=== PATIENT | female | born 1955 ===

== ENCOUNTER 2018-06-12 05:37 | Inpatient (IN) | payer OTHER ==
[2018-06-12] VITALS (9 sets, daily range): BP systolic 106–124; BP diastolic 55–69
[~2018-06-12] VITALS: Ht 160 cm; Wt 92.5 kg
[~2018-06-12 05:37] MED LIST: ALBUTEROL SULF8.5 GM INH; AMLODIPINE BESY10 MG ORAL; ASPIR 8181 MG ORAL; GLIPIZIDE5 MG ORAL; HYDROCHLOROTHIA50 MG ORAL; K-TAB10 MEQ PO; LOSARTAN POTASS50 MG ORAL; OMEPRAZOLE20 M3 ORAL; VITAMIN D250000 UNI1 ORAL
[2018-06-12] MEDS ORDERED: Thrombin 5000 units TOPIC ONE (06:25)
[2018-06-12] MEDS ORDERED: Bacitracin 50000 Units Vial ONE (06:25)
[2018-06-12] MEDS ORDERED: Gelfoam Size TOPIC ONE (06:25)
[2018-06-12] MEDS ORDERED: Lidocaine 1% Plain 30 ml INJ ONE (06:25)
[2018-06-12] MEDS ORDERED: Zemuron 50mg/5ml Inj IV ONE (06:33)
[2018-06-12] MEDS ORDERED: Sodium Chloride 10ml vial INJ ONE (06:45)
[2018-06-12] MEDS ORDERED: HYDROcodone/Acetamin 10/325 tab ORAL PRN (06:45)
[2018-06-12] MEDS ORDERED: Chloraseptic Spray 20mL Bottle ORAL PRN (06:45)
[2018-06-12] MEDS ORDERED: HYDROmorphone 1mg/ml Carpuject SUBQ PRN (06:45)
[2018-06-12] MEDS ORDERED: Lidocaine 1% MPF 10mg/ml 5ml ONE (06:45)
[2018-06-12] MEDS ORDERED: LR 1000ml 1,000 ML IVLG SCH (06:46)
--- NOTE | 2018-06-12 06:56 | Anethesia Preoperative Eval ---
Anesthesia Pre-op PMH/ROS General Date of Evaluation: Jun 12, 2018 Time of Evaluation: 07:01 Anesthesiologist: Chloé ASA Score: ASA 3 Mallampati Score Class I : Soft palate, uvula, fauces, pillars visible Class II: Soft palate, uvula, fauces visible Class III: Soft palate, base of uvula visible Class IV: Only hard plate visible Mallampati Classification: Class II Surgeon: El Diagnosis: Back Pain Surgical Procedure: L5-S1 Microdiscectomy Anesthesia History: none Family History: no anesthesia problems Allergies: Coded Allergies: No Known Allergies (Unverified , 06/11/18) Medications: see eMAR Past Medical History Pulmonary: Reports: asthma Endocrine: Reports: DM Other: obesity - BMI 37 Anesthesia Pre-op Phys. Exam Physician Exam Last Vital Signs Date Time Temp Pulse Resp B/P (MAP) Pulse Ox O2 Delivery O2 Flow Rate FiO2 06/12/18 06:11 97.4 70 20 124/69 (87) 98 97.4 06/12/18 06:07 Room Air Constitutional: NAD Neurologic: CN 2-12 intact Cardiovascular: RRR Respiratory: CTA Gastrointestinal: S/NT/ND Airway Exam Mallampati Score: Class II MO: full ROM: limited Teeth: missing, intact Anesthesia Pre-op A/P Risk Assessment & Plan Assessment: ASA 3 Plan: GA, BIS, GlideScope Status Change Before Surgery: No Pre-Antibiotics Dru Grams Ancef IV Given Within 1 Hr of Incision: Yes Time Given: 07:21 Laureano Luevano MD Jun 12, 2018 06:56
[2018-06-12] MEDS ORDERED: Midazolam 2mg/2ml Inj IVP PRN (07:00)
[2018-06-12] MEDS ORDERED: Norco 5mg/325mg tab ORAL PRN (07:00)
[2018-06-12] MEDS ORDERED: Atropine Inj 1mg/10ml Syr IV PRN (07:00)
[2018-06-12] MEDS ORDERED: Esmolol 100mg/10ml Inj ONE (07:00)
[2018-06-12] MEDS ORDERED: Sterile Water Irrig 1000ml IRRIG ONE (07:00)
[2018-06-12] MEDS ORDERED: NS Irrig 1000ml ONE (07:00)
[2018-06-12] MEDS ORDERED: Propofol 1,000mg/ 100ml btl IV ONE (07:00)
[2018-06-12] MEDS ORDERED: LORazepam Inj 2mg/ml 1ml IV PRN (07:00)
[2018-06-12] MEDS ORDERED: oxyCODONE HCL/Acetaminophen 5/325mg ORAL PRN (07:00)
[2018-06-12] MEDS ORDERED: DiphenhydrAMINE 50mg/ml Inj IVP PRN (07:00)
[2018-06-12] MEDS ORDERED: LR 1000ml ONE ×2 (07:00)
[2018-06-12] MEDS ORDERED: Metoclopramide 10mg/2ml Inj IVP PRN (07:00)
[2018-06-12] MEDS ORDERED: Dexamethasone 20mg/5ml IVP ONE (07:00)
[2018-06-12] MEDS ORDERED: HYDROcodone/Acetamin 7.5/325 tab ORAL PRN (07:00)
[2018-06-12] MEDS ORDERED: Ketorolac 30mg Inj IV PRN ×2 (07:00)
[2018-06-12] MEDS ORDERED: fentaNYL 100 mcg/2 mL IV PRN (07:00)
[2018-06-12] MEDS ORDERED: ceFAZolin sod 1 GM in NS 55 ML IVPB ONE (07:00)
[2018-06-12] MEDS ORDERED: Acetaminophen (Non formulary) 100 ML IV SCH (07:00)
[2018-06-12] MEDS ORDERED: fentaNYL 100 mcg/2 mL IV ONE (07:02)
--- NOTE | 2018-06-12 07:12 | Pre-Procedure Note/Attestation ---
Pre-Procedure Note/Attestation Complete Prior to Procedure Planned Procedure: not applicable Procedure Narrative: L5-S1 microdiscectomy Indications for Procedure Pre-Operative Diagnosis: Trauma, HNP, radiculopathy Attestation I attest that I discussed the nature of the procedure; its benefits; risks and complications; and alternatives (and the risks and benefits of such alternatives ), prior to the procedure, with the patient (or the patient's legal wire rope sales representative). I attest that, if there was a reasonable possibility of needing a blood transfusion, the patient (or the patient's legal wire rope sales representative) was given the [facility] standardized written summary, pursuant to the Rigo Juan David Blood Safety Act ([place] Health and Safety Code # 1645, as amended). I attest that I re-evaluated the patient just prior to the surgery and that there has been no change in the patient's H&P, except as documented below: ZOLTAN MONTAÑO Jun 12, 2018 07:12
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
[2018-06-12] MEDS ORDERED: ePHEDrine 50mg/ml Inj ONE (08:32)
[2018-06-12] MEDS ORDERED: Glycopyrrolate 0.2mg/ml 1ml Vial ONE (09:32)
--- NOTE | 2018-06-12 09:50 | Brief Operative Note ---
Immediate Post Operative Note Operative Note Pre-op Diagnosis: Trauma, HNP, radiculopathy Procedure: L5-S1 microdiscectomy Xray interpretation Dural Repair (needle hole - documented consistent with epidural steroid puncture - not preformed through my office or ordered through my office) Post-op Diagnosis: same as pre-op Findings: other Surgeon: Felicity Barrel Washer Machine: Surinder SHEARER Anesthesiologist: Chloé ZURITA Anesthesia: general Specimen: yes Complications: none Condition: stable Fluids: anesthesia Estimated Blood Loss: minimal Drains: none Implant(s) used?: No ZOLTAN MONTAÑO Jun 12, 2018 09:50
--- NOTE | 2018-06-12 09:54 | Immediate Post-Op Evaluation ---
Immediate Post-Op Evalulation Immediate Post-Op Evalulation Procedure: L5 Microdiscectomy Date of Evaluation: Jun 12, 2018 Time of Evaluation: 10:22 IV Fluids: 1000 LR Blood Products: 0 Estimated Blood Loss: 50 Urinary Output: 0 Blood Pressure Systolic: 117 Blood Pressure Diastolic: 63 Pulse Rate: 86 Respiratory Rate: 16 O2 Sat by Pulse Oximetry: 99 Temperature (Fahrenheit): 98.6 Pain Score (1-10): 3 Nausea: No Vomiting: No Complications 0 Patient Status: awake, reacts, patent, extubated, none Hydration Status: adequate Drug: @ Grams Ancef IV Given Within 1 Hr of Incision: Yes Time Given: 07:21 Laureano Luveano MD Jun 12, 2018 09:54
[2018-06-12] MEDS: Hydromorphone 0.5mg/0.5ml inj IVP PRN ×2 (10:23→10:39)
--- NOTE | 2018-06-12 10:58 | Diagnostic Imaging Report ---
Indication: Lower back pain, right lower extremity greater than left lower extremity, intraoperative imaging Technique: Intraoperative images Comparison: none Findings: Single lateral image demonstrates a surgical tool projected posterior to what is presumably the L5-S1 disc. Impression: Intraoperative imaging, as described
[2018-06-12] MEDS ORDERED: ceFAZolin sod 1 GM in D5W 55 ML IV SCH (14:00)
[2018-06-12] MEDS ORDERED: ceFAZolin 1gm/50ml Premix 50 ML IV SCH (15:30)
[2018-06-12] MEDS ORDERED: NORCO 10-325 T1 EACH ORAL (16:15)
[2018-06-12] MEDS ORDERED: Hyzaar 12.5mg/50mg tab ORAL SCH (18:00)
--- NOTE | 2018-06-12 19:45 | Operative Note - Dictated ---
DATE OF OPERATION: 06/12/2018 PRIMARY SURGEON: Venkat Blevins, Ph.D., M.D. ALIGNMENT SPECIALIST: JANKI Doss. ANESTHESIA: Dr. Luevano, general with intubation. ADMITTING/PREOPERATIVE DIAGNOSIS: Lumbar herniated nucleus pulposus. POSTOPERATIVE DIAGNOSIS: Lumbar herniated nucleus pulposus. PROCEDURE: 1. Durotomy with needle hole, dura, consistent with patient having undergone lumbar epidural steroid injection. 2. Dural repair. 3. High-power microscopic dissection. 4. Intraoperative fluoroscopy interpreted by surgeon. 5. Increased complexity, patient's body habitus, diabetes mellitus, and hypertension. PROCEDURE IN DETAIL: The patient was brought to the operating room and in the supine position, general anesthesia with intubation was induced. The patient received IV antibiotics 30 minutes prior to incision time. After induction of general anesthesia, the patient was carefully positioned in the prone position. Lumbodorsal spine was sterilely prepped and under sterile conditions, spinal needle was placed into the subcutaneous tissue and a cross-table imaging was obtained under sterile conditions, interpreted by surgeon demonstrating the correct level for incision placement. Level was marked. Back was re-sterilely prepped and draped free in usual sterile fashion. A longitudinal midline incision was placed sharply through dermis and epidermis. Electrocautery dissection was carried through the subcutaneous tissue to the level of lumbodorsal fashion. Marker was placed. Cross-table image obtained demonstrating the correct level for further dissection. Level was marked. Marker removed. Subperiosteal dissection right of midline over the involved interval. Hemilaminotomy. CSF leakage noted lateral through the ligamentum flavum/bone interface. Ligament flavum excised in a piecemeal fashion under high-power magnification with a durotomy hole documented through observation by other scrubbed personnel at the inferior edge of the L5 lamina and superior edge of the S1 lamina lateral to midline, not in the area of prior dissection. For exposure, the L5 spinous process and superior S1 were excised crossing midline. Ligamentum flavum excised for access. Under high-power magnification, durotomy repair with 5-0 Nurolon. Valsalva maneuver at 40 mmHg under high-power magnification, no CSF leakage. Dissection was carried lateral to the dural tube. Bipolar electrocauterization was utilized for epidural bleeding. Disk identified. Annulotomy performed under high-power magnification, followed with microdiscectomy to a maximum posterior anterior dimension not exceeding 10 mm, medial lateral not exceeding 10 mm, lateral medial not exceeding 10 mm. No bleeding from the disc space. Disc space was irrigated with antibiotic-containing saline. No further fragments identified. Wound was irrigated with antibiotic-containing saline. The durotomy repair was overlain with DuraGen followed with Tisseel. Running reapproximation of the lumbodorsal fascia. Multiple layer reapproximation of subcutaneous tissue. Dermis and epidermis reapproximated with a running subcuticular suture, watertight. Surgical strips applied. Sterile bandage applied. Bandage maintained in place with tape. No local anesthetic utilized. The patient was turned from the prone to the supine position on the transport bed where she was awakened, extubated in the operating room, and transported to postop recovery in good stable condition. Venkat Blevins M.D. DR: CECELIA JOB#: [id number] CC:
--- NOTE | 2018-06-13 10:24 | 48 Hour Post Anesthesia Eval ---
Post Anesthesia Evaluation Procedure: L5 Microdiscectomy Date of Evaluation: Jun 12, 2018 Airway: patent Nausea: No Vomiting: No Pain Intensity: 2 Hydration Status: adequate Cardiopulmonary Status: at baseline Mental Status/LOC: patient returned to baseline Post-Anesthesia Complications: 0 Follow-up care needed: ready to discharge Marialuisa Powell MD Jun 13, 2018 10:24
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
== END 2018-06-12 19:40 | disposition home or self-care (01) | DRG 519 ==
LOC: SUR 05:37 → 3E 11:25 → SUR 19:34 → 3E 19:35
PROC: 00QT0ZZ Repair Spinal Meninges, Open Approach (ICD-10-PCS; principal; 2018-06-12 07:00)
PROC: 0SB20ZZ Excision of Lumbar Vertebral Disc, Open Approach (ICD-10-PCS; principal; 2018-06-12 07:00)
DX: M51.16 Intervertebral disc disorders with radiculopathy, lumbar region (principal); G96.11 Dural tear; E66.01 Morbid (severe) obesity due to excess calories; E11.9 Type 2 diabetes mellitus without complications; I10 Essential (primary) hypertension; K21.9 Gastro-esophageal reflux disease without esophagitis; Z79.82 Long term (current) use of aspirin; G89.18 Other acute postprocedural pain; Z87.891 Personal history of nicotine dependence; Z68.36 Body mass index [BMI] 36.0-36.9, adult; Y84.8 Other medical procedures as the cause of abnormal reaction of the patient, or of later complication, without mention of misadventure at the time of the procedure; Y92.89 Other specified places as the place of occurrence of the external cause
CPT/HCPCS: 72020; 76001; 82962; 87081; G0378; J2405